=== PATIENT | male | born 1995 | race Caucasian/White ===

== ENCOUNTER 2019-10-01 12:19 | Emergency (ER) | payer OTHER ==
[~2019-10-01] VITALS: Ht 162.6 cm; Wt 54.5 kg
[2019-10-01 15:05] VITALS: BP 119/54
== END 2019-10-01 15:07 | disposition home or self-care (01) ==
LOC: EMS 12:24
DX: Z20.828 Contact with and (suspected) exposure to other viral communicable diseases (principal); F17.210 Nicotine dependence, cigarettes, uncomplicated; F12.90 Cannabis use, unspecified, uncomplicated
CPT/HCPCS: 87635; 99283; U0003